=== PATIENT | female | born 1950 | race Caucasian/White ===

== ENCOUNTER 2018-11-13 09:37 | Inpatient (IN) | payer MEDICARE, BC ==
[~2018-11-13] VITALS: Ht 154.9 cm; Wt 86.6 kg
--- NOTE | 2018-11-13 09:45 | NUR ---
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 ALERT AND ORIENTED X 4, VERBALLY RESPONSIVE AND ABLE TO MAKE NEEDS KNOWN. ON ROOM AIR, BREATHING EVENLY AND UNLABORED. HOOKED ON THE MONITOR. DR. STEVENSON AT BEDSIDE FOR EVAL. WILL CONTINUE TO MONITOR ACCORDINGLY.
--- NOTE | 2018-11-13 09:48 | NUR ---
09:48AM ACTIVATED CODE STROKE 09:59AM TOOK PT TO CT 1013AM PT CAME BACK FROM CT, AND HOOKED ON THE MONITOR, PT AMBULATED TO THE BATHROOM IN STEADY GAIT. AT BEDSIDE. KEPT PATIENT COMFORTABLE. 1025AM DR. COLLAZO TELE DOCTOR ON THE MONITOR FOR CONFERENCE AND EVALUATED PATIENT AND ASSISTED. WILL CONTINUE TO MONITOR ACCORDINGLY.
--- NOTE | 2018-11-13 09:50 | NUR ---
Notified [facility] for ER Code Stroke
[2018-11-13] MEDS ORDERED: ASPIRIN 325 MG TABLET PO ONE (10:00)
[2018-11-13] MEDS ORDERED: IV NS 0.9% 1,000 ML BAG IV ONE (10:00)
[2018-11-13] MEDS ORDERED: IV NS 0.9% 250 ML IV ONE (10:03)
[2018-11-13] MEDS ORDERED: IOHEXOL-350 100 ML VIAL IV ONE (10:03)
[2018-11-13] MEDS ORDERED: CT SWABBABLE VALVE TRANS SET 1 EA INFUS.SET MC ONE (10:03)
[2018-11-13 10:04] LABS: BASOPHILS # (AUTO) 0.1 /CMM (0.0-0.2); BASOPHILS % (AUTO) 0.8 % (0.0-2.0); HEMATOCRIT 43 % (33-45); HEMOGLOBIN 14.6 g/dL (11.5-14.8); LYMPHOCYTES # (AUTO) 2.3 /CMM (0.8-4.8); LYMPHOCYTES % (AUTO) 33.3 % (20.0-44.0); MEAN CORPUSCULAR HGB CONC 34 g/dl (31.0-36.0); MEAN CORPUSCULAR VOLUME 92 fL (82-100); MONOCYTES # (AUTO) 0.5 /CMM (0.1-1.30); MONOCYTES % (AUTO) 6.5 % (2.0-12.0); NEUTROPHILS # (AUTO) 3.9 /CMM (1.8-8.9); NEUTROPHILS % (AUTO) 56.4 % (43.0-81.0); PLATELET COUNT (AUTO) 242 /CMM (150-450); RED BLOOD CELL COUNT(AUTO) 4.68 MIL/uL (4.0-5.2)
[2018-11-13 10:09] LABS: CALCIUM, SERUM 9.9 mg/dL (8.5-10.1); CARBON DIOXIDE 28 mmol/L (21-32); CHLORIDE 101 mmol/L (98-107); GLUCOSE 141 mg/dL (74-106); POTASSIUM 3.9 mmol/L (3.5-5.1); SODIUM SERUM 137 mmol/L (136-145); UREA NITROGEN, BLOOD 20 mg/dL (7-18)
[2018-11-13 10:14] LABS: ALANINE AMINOTRANSFERASE 44 U/L (12-78); ALBUMIN 3.9 g/dL (3.4-5.0); ALKALINE PHOSPHATASE 96 U/L (46-116); ASPARTATE AMINOTRANSFERASE 20 U/L (15-37); BILIRUBIN,DIRECT 0.1 mg/dL (0.0-0.2); BILIRUBIN,TOTAL 0.3 mg/dL (0.2-1.0); TOTAL PROTEIN, SERUM 8.5 g/dL (6.4-8.2)
[2018-11-13 10:26] LABS: APPEARANCE,URINE Slightly Cloudy (CLEAR); BILIRUBIN,URINE Negative (NEGATIVE); BLOOD, URINE Small Ery/uL (NEGATIVE); COLOR,URINE Yellow (YELLOW); KETONES,URINE Negative (NEGATIVE); LEUKOCYTE ESTERASE ,URINE Trace (NEGATIVE); NITRITE, URINE Negative (NEGATIVE); PH,URINE 6.5 (5.0-8.0); PROTEIN,URINE Negative (NEGATIVE); UGLUCOSE Negative (NEGATIVE); UROBILINOGEN,URINE 0.2 EU/dL (0.2)
[2018-11-13 10:34] LABS: BACTERIA,URINE Rare /HPF (None Seen); SQUAMOUS EPITHELIAL CELL,UR Moderate /HPF (None Seen)
[2018-11-13] MEDS ORDERED: ASPIRIN 81 MG TAB.CHEW ONE (10:34)
[2018-11-13 10:39] LABS: CHOLESTEROL 235 mg/dL (<200); HDL CHOLESTEROL 58 mg/dL (40-60); LDL 159 mg/dL (0-99); TRIGLYCERIDES 159 mg/dL (30-150)
--- NOTE | 2018-11-13 10:54 | NUR ---
PATIENT WILL GO TO 322-2 (SHANITA MONAE).
--- NOTE | 2018-11-13 11:01 | NUR ---
Paged Liana Moon GAS ENGINE REPAIRER for admission
[2018-11-13] MEDS ORDERED: METF-440 PO (11:34)
[2018-11-13] MEDS ORDERED: LOSA50TA39 PO (11:34)
[2018-11-13] MEDS ORDERED: LEVO137T2 PO (11:34)
[2018-11-13] MEDS ORDERED: CHOL50004 PO (11:34)
[2018-11-13 12:11] VITALS: BP 103/62
[2018-11-13] MEDS ORDERED: ACETAMINOPHEN 325 MG TABLET PO PRN (12:30)
[2018-11-13] MEDS ORDERED: MAG HYDROX/AL HYDROX/SIMETH 30 ML UDC PO PRN (12:30)
--- NOTE | 2018-11-13 12:30 | NUR ---
RN NOTE PT ARRIVED FROM ER, AOX4, SPEECH CLEAR, NO APPARENT WEAKNESS, ABLE TO SWALLOW, BOTH IV SITES INTACT, ON PICKER FEEDER SINUS DELTA 52. SKIN IS INTACT, PT AMBULATORY. WILL MONITOR CLOSELY.
--- NOTE | 2018-11-13 12:30 | NUR ---
WHEELED PATIENT VIA GURNEY ACCOMPANIED BY EMT AND RN ASSIGNED VIA ACLS PROTOCOL. IN NO APPARENT DISTRESS NOTED. PT GOING TO ROOM 322-2 T.
[2018-11-13] MEDS: CHOLECALCIFEROL 1,000 UNIT TABLET (VIT D3) PO SCH (14:03)
[2018-11-13] MEDS: ENOXAPARIN SODIUM 40 MG/0.4 ML DISP.SYRIN SQ SCH (14:04)
[2018-11-13] MEDS: LEVOFLOXACIN 500 MG /D5W 100ML 500 MG in PREMIX 1 EA IV SCH (14:06)
[2018-11-13] MEDS: IV NS 0.9% 1,000 ML IV SCH (14:06)
[2018-11-13 16:00] VITALS: BP 129/62
[2018-11-13] MEDS ORDERED: BLOOD SUGAR DIAGNOSTIC 1 EACH STRIP IN SCH (17:30)
[2018-11-13] MEDS: BLOOD SUGAR DIAGNOSTIC 1 EACH STRIP IN SCH (17:53)
[2018-11-13] MEDS ORDERED: BISACODYL SUPP (10 MG) 10 MG/SUPP.RECT SUPP.RECT RC PRN (19:00)
[2018-11-13 20:00] VITALS: BP 131/68
[2018-11-13 20:37] VITALS: BP 131/68
[2018-11-13] MEDS ORDERED: SIMVASTATIN 40 MG TABLET PO SCH (22:00)
[2018-11-13] MEDS: ATORVASTATIN 40 MG TABLET PO SCH (22:12)
[2018-11-14] VITALS (7 sets, daily range): BP systolic 114–137; BP diastolic 63–70
[2018-11-14] MEDS: BLOOD SUGAR DIAGNOSTIC 1 EACH STRIP IN SCH ×4 (01:03→17:39)
--- NOTE | 2018-11-14 07:36 | NUR ---
TELE BUNDLE SORTER NOTES PT AWAKE AND ALERT , STABLE KATHY THE NIGHT AND SLEPT WELL, NO SIGNS OF ANY ACUTE DISTRESS OR ANY DISCOMFORT NOTED. TELE SB PER MONITOR. AND VITAL SIGNS STABLE KATHY THE NIGHT. ALL DUE MEDS GIVEN AND ALL NEEDS MET. KEPT HER WARM AND COMFORTABLE AT ALL TIMES. PLACE CALL LIGHT AT REACH. ENDORSE TO AM NURSE FOR CONTINUITY OF CARE. PLACE CALL LIGHT AT REACH.
--- NOTE | 2018-11-14 07:51 | NUR ---
JET DYEING MACHINE TENDER OPENING NOTE RECEIVED PATIENT IN ASLEEP IN BED LOCKED IN LOWEST POSITION WITH SIDERAILS UP x2 FOR SAFETY. TELE MONITOR-SR 64. ALERT AND ORIENTED x4 NO FACIAL GRIMACING NOTED FOR PAIN NOTED. NO SOB OR DISTRESS NOTED ON ROOM AIR TOLERATING WELL ON ROOM AIR. BRP. IV ON RIGHT AC AND LEFT AC WITH NS AT 50 ML/HR. ACCU CHECKS TO BE DONE AND INSULIN TO BE GIVEN ACCORDINGLY. PATIENT AMBULATORY AND STEADY. NO RIGHT SIDED WEAKNESS NOTED. WILL CONTINUE TO MONITOR THROUGHOUT SHIFT
[2018-11-14] MEDS: ASPIRIN EC 325 MG TABLET.DR PO SCH (08:30)
[2018-11-14] MEDS: LEVOTHYROXINE SODIUM 137 MCG TABLET PO SCH (08:30)
[2018-11-14] MEDS: PANTOPRAZOLE 40 MG VIAL IV SCH (08:30)
[2018-11-14] MEDS: DOCUSATE SODIUM 100 MG CAPSULE PO SCH (08:30)
[2018-11-14] MEDS: LOSARTAN POTASSIUM 50 MG TABLET PO SCH (08:30)
[2018-11-14] MEDS: IV NS 0.9% 1,000 ML IV SCH (08:31)
[2018-11-14] MEDS: ENOXAPARIN SODIUM 40 MG/0.4 ML DISP.SYRIN SQ SCH (08:32)
--- NOTE | 2018-11-14 08:32 | NUR ---
RN NOTE ALL MORNING MEDICATIONS GIVEN ORDERED BY MD AT THIS TIME
[2018-11-14] MEDS: CHOLECALCIFEROL 1,000 UNIT TABLET (VIT D3) PO SCH (08:38)
[2018-11-14] MEDS ORDERED: IV NS 0.9% 1,000 ML IV PRN (09:35)
--- NOTE | 2018-11-14 12:07 | NUR ---
MS RN NOTE BS-113 NO INSULIN NEEDED
--- NOTE | 2018-11-14 12:29 | NUR ---
MS RN NOTE PATIENT TO BE TAKEN DOWN TO MRI AT THIS TIME. WILL CONTINUE CARE WHEN PATIENT RETURNS TO UNIT
--- NOTE | 2018-11-14 13:28 | NUR ---
MS RN NOTE PATIENT BACK FROM MRI AT THIS TIME RESTING IN BED COMFORTABLY. WILL CONTINUE CARE
[2018-11-14] MEDS: LEVOFLOXACIN 500 MG /D5W 100ML 500 MG in PREMIX 1 EA IV SCH (13:51)
--- NOTE | 2018-11-14 14:00 | NUR ---
ms rn note seen by scahin holman np at bedside
--- NOTE | 2018-11-14 17:41 | NUR ---
ms rn note bs-110 no insulin needed
--- NOTE | 2018-11-14 18:26 | NUR ---
MS RN CLOSING NOTE PATIENT IN AWAKE IN BED LOCKED IN LOWEST POSITION WITH SIDERAILS UP x2 FOR SAFETY. ALERT AND ORIENTED x4 NO FACIAL GRIMACING NOTED FOR PAIN NOTED. NO SOB OR DISTRESS NOTED ON ROOM AIR TOLERATING WELL ON ROOM AIR. BRP. IV ON RIGHT AC AND LEFT AC WITH NS AT 50 ML/HR. BLOOD SUAGRS CHECKED NO INSULIN NEEDED. PATIENT AMBULATORY AND STEADY. NO RIGHT SIDED WEAKNESS NOTED. CALL LIGHT WITHIN REACH AT ALL TIMES. ALL DUE MEDICATIONS GIVEN ORDERED. ALL NURSING CARE NEEDS MET. LABS IN AM. WILL ENDORSE TO MEDICAID BILLING CLERK NURSE FOR VASILE
--- NOTE | 2018-11-14 19:30 | NUR ---
MS NUNEZ INITIAL NOTES RECEIVED REPORT FROM AM NURSE AND CHECKED THE PATIENT. SEEN CHATTING ON HER CELLPHONE. DENIES ANY PAIN OR ANY DISCOMFORT. NO SIGNS OF ANY STROKE NOTED. PT AWARE THAT POSSIBLE SHE WILL D/C SCAR[place]TT . NO SIGNS OF ANY ACUTE DISTRESS NOTED. KEPT HER WARM AND COMFORTABLE AT ALL TIMES. PLACE CALL LIGHT AT REACH. WILL CONTINUE MONITORING.
[2018-11-14] MEDS: ATORVASTATIN 40 MG TABLET PO SCH (22:22)
[2018-11-15] MEDS: BLOOD SUGAR DIAGNOSTIC 1 EACH STRIP IN SCH ×3 (00:56→12:26)
--- NOTE | 2018-11-15 00:56 | NUR ---
MS ENRIQUE NOTES BLOOD SUGAR CHECKED DONE 145 NO INSULIN COVERAGE ORDERED. NO SIGNS OF ANY HYPER GLYCEMIA NOTED. KEPT HER WARM AND COMFORTABLE AT ALL TIMES. WILL CONTINUE MONITORING.
--- NOTE | 2018-11-15 06:04 | NUR ---
MS CERAMICS ENGINEER NOTES PT SLEEPING COMFORTABLY IN BED WITHOUT ANY ACUTE DISTRESS NOTED. BLOOD SUGAR CHECKED DONE 129 NO COVERAGES ORDERED.
--- NOTE | 2018-11-15 07:24 | NUR ---
MS PLASTER DIE MAKER CLOSING NOTES PT RESTING COMFORTABLY IN BED WITHOUT ANY ACUTE DISTRESS NOTED. STABLE KATHY THE NIGHT AND NO SIGNS OF ANY RIGHT SIDED WEAKNESS NOTED KATHY THE NIGHT. ALL DUE MEDS GIVEN AND ALL NEEDS MET. KEPT HER WARM AND COMFORTABLE AT ALL TIMES. HEPLOCK BOTH PATENT AND INTACT. ENDORSE TO AM NURSE FOR CONTINUITY OF CARE.PLACE CALL LIGHT AT REACH.
[2018-11-15 07:49] LABS: ALBUMIN 3.7 g/dL (3.4-5.0); BILIRUBIN,TOTAL 0.4 mg/dL (0.2-1.0); CALCIUM, SERUM 9.2 mg/dL (8.5-10.1); CREATININE 0.9 mg/dL (0.6-1.3); PHOSPHORUS 3.6 mg/dL (2.5-4.9); POTASSIUM 3.9 mmol/L (3.5-5.1); TOTAL PROTEIN, SERUM 8.1 g/dL (6.4-8.2)
--- NOTE | 2018-11-15 07:54 | NUR ---
MS RN NOTES PATIENT RECEIVED RESTING INSIDE ROOM. AWAKE, ALERT AND ORIENTED X 4, VERBALLY RESPONSIVE AND RESPONDS TO VERBAL AND TACTILE STIMULI. BREATHING EVEN AND UNLABORED. NO ACUTE DISTRESS NOTED AT THIS TIME. DENIES ANY PAIN OR DISCOMFORT. NO CHANGES IN LOC NOTED. PATIENT CALM AND RELAXED. WILL CONTINUE TO MONITOR. BED LOCKED AND IN LOW POSITION. BILATERAL UPPER SIDE RAILS UP AND LOCKED. CALL LIGHT WITHIN EASY REACH
[2018-11-15 08:00] VITALS: BP 140/77
[2018-11-15 08:51] VITALS: BP 140/77
[2018-11-15] MEDS: DOCUSATE SODIUM 100 MG CAPSULE PO SCH (08:51)
[2018-11-15] MEDS: PANTOPRAZOLE 40 MG VIAL IV SCH (08:51)
[2018-11-15] MEDS: CHOLECALCIFEROL 1,000 UNIT TABLET (VIT D3) PO SCH (08:51)
[2018-11-15] MEDS: LOSARTAN POTASSIUM 50 MG TABLET PO SCH (08:51)
[2018-11-15] MEDS: LEVOTHYROXINE SODIUM 137 MCG TABLET PO SCH (08:51)
[2018-11-15] MEDS: ASPIRIN EC 325 MG TABLET.DR PO SCH (08:51)
[2018-11-15] MEDS: ENOXAPARIN SODIUM 40 MG/0.4 ML DISP.SYRIN SQ SCH (08:52)
[2018-11-15] MEDS ORDERED: LEVO500T75 PO (11:08)
[2018-11-15] MEDS ORDERED: SIMV10TA6 PO (11:37)
[2018-11-15] MEDS ORDERED: ASPI-605 PO (11:37)
--- NOTE | 2018-11-15 14:04 | NUR ---
MS RN NOTES PATIENT FOR DISCHARGE TODAY. DISCHARGE INSTRUCTIONS AND EDUCATION GIVEN TO PATIENT AND VERBALIZED UNDERSTANDING. ALL BELONGINGS COMPLETE ON DISCHARGE, NO REPORT OF MISSING INVENTORY. IV REMOVED WITH MINIMAL BLEEDING NOTED. PRESSURE DRESSING PLACED ON SITE. PATIENT LEFT UNIT AT 1400 AMBULATORY IN STABLE CONDITION. BREATHING EVEN AND UNLABORED. NO ACUTE DISTRESS. NO NEW SKIN BREAKDOWN ON DISCHARGE. PATIENT ACCOMPANIED BY NURSING STAFF. LEFT HOSPITAL PREMISES VIA PRIVATE CAR WITH . MD AWARE OF DISCHARGE
== END 2018-11-15 14:13 | disposition home or self-care (01) | DRG 552 ==
LOC: ER 09:38 → TELE 11:11 → MED 11-14 10:29
PROVIDERS: ADMIT Registered Nurse; ATTEND Registered Nurse
DX: M50.322 Other cervical disc degeneration at C5-C6 level (principal); N39.0 Urinary tract infection, site not specified; M48.02 Spinal stenosis, cervical region; I65.22 Occlusion and stenosis of left carotid artery; B96.89 Other specified bacterial agents as the cause of diseases classified elsewhere; E03.9 Hypothyroidism, unspecified; E11.9 Type 2 diabetes mellitus without complications; E66.01 Morbid (severe) obesity due to excess calories; Z68.36 Body mass index [BMI] 36.0-36.9, adult; I10 Essential (primary) hypertension; Z79.84 Long term (current) use of oral hypoglycemic drugs; E78.5 Hyperlipidemia, unspecified; M48.00 Spinal stenosis, site unspecified
CPT/HCPCS: 36415; 70450-TC; 70496-TC; 70498-TC; 70551-TC; 71045-TC; 72141-TC; 80048-TC; 80053-TC; 80061-TC; 80076-TC; 81000-TC; 82962-TC; 83735-TC; 84100-TC; 84484-TC; 85025-TC; 85730-TC; 87081-TC; 92611-TC; 93307-TC; 93880-TC; A4216; C9113; G0378; J1650; J1956; J7030; J7050; Q9967

== ENCOUNTER 2024-02-16 17:25 | Emergency (ER) | payer MEDICARE, BC ==
[~2024-02-16] VITALS: Ht 154.9 cm; Wt 83.9 kg
[~2024-02-16 17:25] MED LIST: ASPI-605 PO; CHOL50004 PO; LEVO137T2 PO; LEVO500T23 PO; LOSA50TA39 PO; METF-440 PO; SIMV10TA98 PO
[2024-02-16 17:37] VITALS: TEMP 98.6
[2024-02-16 18:08] LABS: BASOPHILS # (AUTO) 0.1 K/uL (0.0-0.2); BASOPHILS % (AUTO) 0.8 % (0.0-2.0); EOSINOPHILS # (AUTO) 0.3 K/uL (0.0-0.7); EOSINOPHILS % (AUTO) 4.2 % (0.0-6.0); HEMATOCRIT 39 % (33-45); HEMOGLOBIN 12.9 g/dL (11.5-14.8); LYMPHOCYTES # (AUTO) 2.3 K/uL (0.8-4.8); LYMPHOCYTES % (AUTO) 29.7 % (20.0-44.0); MEAN CORPUSCULAR HEMOGLOBIN 31 PG (26.0-33.0); MEAN CORPUSCULAR HGB CONC 34 g/dl (31.0-36.0); MEAN CORPUSCULAR VOLUME 91 fL (82-100); MONOCYTES # (AUTO) 0.5 K/uL (0.1-1.30); MONOCYTES % (AUTO) 7.1 % (2.0-12.0); NEUTROPHILS # (AUTO) 4.5 K/uL (1.8-8.9); NEUTROPHILS % (AUTO) 58.2 % (43.0-81.0); PLATELET COUNT (AUTO) 263 K/uL (150-450); RED BLOOD CELL COUNT(AUTO) 4.23 MIL/uL (4.0-5.2); RED CELL DISTRIBUTION WIDTH 14.1 % (11.5-15.0); WHITE BLOOD COUNT (AUTO) 7.7 K/uL (4.3-11.0)
[2024-02-16 18:20] LABS: CALCIUM, SERUM 9.4 mg/dL (8.5-10.1); CARBON DIOXIDE 31 mmol/L (21-32); CHLORIDE 101 mmol/L (98-107); CREATININE 1.1 mg/dL (0.6-1.3); GLUCOSE 102 mg/dL (74-106); POTASSIUM 4.9 mmol/L (3.5-5.1); SODIUM SERUM 141 mmol/L (136-145); UREA NITROGEN, BLOOD 19 mg/dL (7-18)
[2024-02-16 18:40] LABS: ALANINE AMINOTRANSFERASE 33 U/L (12-78); ALBUMIN 3.4 g/dL (3.4-5.0); ALKALINE PHOSPHATASE 88 U/L (46-116); ASPARTATE AMINOTRANSFERASE 34 U/L (15-37); BILIRUBIN,TOTAL 0.3 mg/dL (0.2-1.0); NT-PRO BNP 30 pg/mL (0-125); TOTAL PROTEIN, SERUM 7.9 g/dL (6.4-8.2)
[2024-02-16 18:48] LABS: INR 0.94 (0.91-1.10); PARTIAL THROMBOPLASTIN TIME 27.5 SEC (24.3-34.3)
[2024-02-16 20:36] VITALS: BP 140/78; O2SAT 95
== END 2024-02-16 20:37 | disposition home or self-care (01) ==
LOC: ER 17:34
DX: R60.0 Localized edema (principal); R06.00 Dyspnea, unspecified; E11.9 Type 2 diabetes mellitus without complications; E78.5 Hyperlipidemia, unspecified; E03.9 Hypothyroidism, unspecified; I10 Essential (primary) hypertension
CPT/HCPCS: 36415; 71045-TC; 80048-TC; 80076-TC; 83880; 84484-TC; 85025-TC; 85730-TC